=== PATIENT | male | born 1955 | race Two or more races ===

== ENCOUNTER 2017-07-05 12:10 | Emergency (ER) | payer MEDICAID, OTHER ==
[~2017-07-05] VITALS: Ht 170.2 cm; Wt 63.5 kg
[2017-07-05 15:37] VITALS: BP 160/80
[2017-07-05] MEDS ORDERED: HYDROcodone-ACET 10/325MG TAB PO ONE (16:00)
== END 2017-07-05 18:15 | disposition home or self-care (01) ==
LOC: ER 12:10 → EDBD 12:10 → ER 18:15
DX: S43.004A Unspecified dislocation of right shoulder joint, initial encounter (principal); S20.211A Contusion of right front wall of thorax, initial encounter
CPT/HCPCS: 29105; 71101; 73030; 73070